=== PATIENT | male | born 1950 | race Caucasian/White ===

== ENCOUNTER 2018-01-22 07:07 | Day surgery (SDC) | payer BC ==
--- NOTE | 2018-01-12 08:09 | HP ---
CC: Stevie Nicole MD * HISTORY AND PHYSICAL: DATE OF ADMISSION/SURGERY: 01/22/18 ATTENDING SURGEON: González Pedraza MD * (DICTATED BY LUDIVINA OWENS) PRIMARY CARE PHYSICIAN: Stevie Nicole MD CHIEF COMPLAINT: Lipoma on the back. HISTORY OF PRESENT ILLNESS: Mr. Lemons is a pleasant 67-year-old gentleman who was seen in the office back in early October of this year for evaluation of a large mass on his mid back. The patient notes that he has had this soft mass for approximately the past 10 years that has gotten slightly bigger over time. He feels that this back mass has increased in size in the past year or so and now it is causing him some discomfort, especially when he leans backwards or while he is sitting or lying down on his back. He denies any significant pain, redness or drainage from the area. He has no other masses or lesion in other parts of his body. He was self referred and was seen initially by Dr. Pedraza about 2 months ago in the office for consultation. He was found on examination to have a large lipoma at his mid back for which we discussed with him initially proceeding with surgical removal in the operating room. It was felt back then that the lipoma is slightly larger than other skin lesions or masses that can be done safely as an office setting procedure. The patient returned to the office today for updated history and physical and to discuss further details of his surgery. He denies any significant changes since his last office visit. He still noticed some discomfort when he leaned backwards on his chair or if he lies down on his back, but denies any redness, discharge, fever or chills. PAST MEDICAL HISTORY: Significant for psoriasis and psoriatic arthritis for which the patient has been maintained on methotrexate for which he takes doses on a weekly basis. He otherwise is a relatively healthy upper middle aged gentleman with no significant past medical history of any kidney, liver, lung, or heart disease. PAST SURGICAL HISTORY: Significant for left inguinal hernia repair with mesh about 15 years ago. He also had wisdom teeth extraction and a small cyst removal from his right wrist. CURRENT MEDICATIONS: His current medications at home include: 1. Betamethasone valerate 0.12% cream, use every other day for 2 weeks on and 1 week off as needed for arthritic and psoriatic lesions. 2. He is also taking folic acid 1 mg daily. 3. Methotrexate 2.5 mg 6 tablets every week that he usually takes 2 on Monday night, 2 on Monday morning, and another 2 on Monday night. ALLERGIES: He is allergic to SULFA. FAMILY HISTORY: Noncontributory. SOCIAL HISTORY: The patient is , lives with his . 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 REVIEW OF SYSTEMS: See HPI, otherwise negative. He denies any headache, dizziness, blurred vision, or double vision. No chest pain, palpitation, or shortness of breath. He denies any back pain, flank pain, dysuria, hematuria, or urinary frequency. He admits to occasional arthritic aches and pains as well as a longstanding history of psoriasis and psoriatic arthritis, but denies any joint swelling or redness. No fever, chills, weight loss, or night sweats. PHYSICAL EXAMINATION GENERAL: He is a pleasant healthy appearing gentleman, in no acute distress or discomfort at the time of his visit. VITAL SIGNS: Revealed blood pressure of 120/80, pulse of 72, respirations 16, temperature of 97.5. He is 5 feet 9 inches, weighs 170 pounds with BMI of 25. HEENT: Head is normocephalic and atraumatic. Sclerae anicteric. PERRLA. EOMs intact. Oropharynx is pink and moist. NECK: Supple. Trachea midline. No cervical adenopathy, thyromegaly, or JVD. LUNGS: Clear to auscultation bilaterally. HEART: Regular rate and rhythm. Normal S1 and S2 without rubs, murmurs, or gallops. BACK: Normal curvature. No CVA tenderness. Skin on his back is warm and dry with no evidence of rashes or lesions. Examination of his mid back, slightly to the right of midline there is a large discrete subcutaneous mass measuring approximately 8 x 10 cm that is soft and fleshy and nontender on palpation. It appears to be well circumscribed and mobile with no evidence of any nodules or fluctuance. There is no overlying skin changes, erythema, induration, or discharge noted. ABDOMEN: Soft, nontender, and nondistended without hernias, masses, or hepatosplenomegaly. EXTREMITIES: Multiple visible deformities at the distal interphalangeal joints were noted likely from longstanding history of psoriatic arthritis. There is no tenderness at the joint line and no apparent swelling or erythema noted. No edema or clubbing. RECTAL: Deferred at this time. NEUROLOGIC: Grossly intact. IMPRESSION: A 67-year-old gentleman with a large lipoma on his mid back. PLAN: The patient is scheduled for removal of lipoma on his mid back on to be performed by Dr. Pedraza. We went on and discussed with him the rationale, indication, risks and benefits of surgery. Risks include but not limited to infection, bleeding, or injury to the adjacent structures. He appears to understand and wishes to proceed as outlined. As we mentioned above that given his large size lipoma, it was felt to be more safe to undergo the procedure in an operating room setting instead of doing it in an office. No preadmission testing in the hospital is needed and at this time no laboratory workup is indicated as well. He was advised to hold his methotrexate for a period of 7 days prior to the surgery and likely to hold it for another 7 days after surgery to promote proper healing. All his questions were answered and we will plan to see him back in the office a week after surgery for followup. LUDIVINA OWENS [id number]/[facility] #: [id number] MAURISIO
[~2018-01-22 07:07] MED LIST: Buffered Lidocaine 0.9% SYRIN* 5 ML/SYR SYRINGE INTRADERM ONE
[2018-01-22] MEDS ORDERED: ceFAZolin 1 GM VIAL(*) 2 GM in NS 0.9% 50 ML* 50 ML IVPB ONE (08:00)
[2018-01-22] MEDS ORDERED: Lidocaine 1% MPF wEPI 200,000* 30 ML SDV ONE (08:34)
[2018-01-22] MEDS ORDERED: Bupivacaine 0.5% SDV PF* 10-30ML VIAL ONE (08:34)
[2018-01-22] MEDS ORDERED: fentaNYL* 50 MCG/ML 2 ML VIAL (100 MCG VIAL) ONE (08:58)
[2018-01-22] MEDS ORDERED: Midazolam* 1 MG/ML 5 ML VIAL (5 MG) ONE (08:58)
[2018-01-22] MEDS ORDERED: Acetaminophen TAB* 325 MG PO PRN (09:26)
[2018-01-22] MEDS ORDERED: Naloxone* 0.4 MG/ML 1 ML VIAL IV PRN (09:26)
[2018-01-22 10:16] VITALS: BP 120/79
--- NOTE | 2018-01-23 12:12 | OP ---
DATE OF OPERATION: 01/22/18 - [facility] DATE OF : 46 SURGEON: González Pedraza MD ROVING CAN TENDER: LIZZ Yañez ANESTHESIOLOGIST: Jonathan Heard MD ANESTHESIA: Local with monitored anesthesia care. PRE-OP DIAGNOSIS: Mid back subcutaneous mass. POST-OP DIAGNOSIS: Mid back subcutaneous lipoma, 10 cm x 10 cm. OPERATIVE PROCEDURE: Excision of subcutaneous lipoma, 10 cm x 10 cm. WOUND CLASSIFICATION: I. SPECIMENS: Subcutaneous lipoma. COMPLICATIONS: None. DRAINS: None. IV FLUIDS: Minimal. DESCRIPTION OF PROCEDURE: Written informed consent was obtained, the subcutaneous mass on the right mid back was marked and preoperative antibiotics were administered. The patient was taken to the operating room and placed in the left lateral decubitus position. Sequential compression devices and a warming blanket were applied. The back was prepped and draped in the usual sterile fashion. Time-out verification was completed. 1% lidocaine with epinephrine mixed with 0.25% Marcaine was infiltrated extensively over the palpable subcutaneous mass, which was at about the mid back overlying the vertebral column. A transverse incision was made, carried out through the subcutaneous tissue. Here, a 10 cm x 10 cm lipoma was excised. This was somewhat adherent to the underlying skin and had several "fingers of fat" extending into the subcutaneous tissue, around the periphery, but I was able excise the lesion entirely. This did extend right down to the midline muscular fascia. The specimen was sent for pathology in formalin. Hemostasis was assured. The wound was then closed in layers of 3-0 interrupted subcutaneous Vicryl suture. The skin was approximated with subcuticular 4-0 Vicryl suture. Steri-Strips and sterile dressings were applied. The patient tolerated the procedure well and was taken to the recovery room in stable condition. [id number]/[facility] #: [id number] [facility]
== END 2018-01-22 10:58 | disposition home or self-care (01) ==
LOC: OR 07:07
PROVIDERS: ATTEND Surgery
DX: D17.1 Benign lipomatous neoplasm of skin and subcutaneous tissue of trunk (principal); L40.50 Arthropathic psoriasis, unspecified; L40.9 Psoriasis, unspecified
CPT/HCPCS: 88304; J0690; J2001; J2250; J3010